=== PATIENT | female | born 1985 | race Two or more races ===

== ENCOUNTER 2022-06-22 23:23 | Emergency (ER) | payer OTHER ==
[~2022-06-22] VITALS: Ht 152.4 cm; Wt 81.6 kg
[~2022-06-22 23:23] MED LIST: ALBUTEROL2.5 MG/3 M IH
[2022-06-23] MEDS ORDERED: ORASEP SPRAY30 ML MM (04:52)
[2022-06-23] MEDS ORDERED: ZITHROMAX500 MG PO (04:52)
== END 2022-06-23 05:05 ==
LOC: ER 23:23
DX: R53.81 Other malaise (principal); J03.80 Acute tonsillitis due to other specified organisms; B96.89 Other specified bacterial agents as the cause of diseases classified elsewhere; R50.9 Fever, unspecified; R07.89 Other chest pain; Z20.822 Contact with and (suspected) exposure to COVID-19

== ENCOUNTER 2022-12-25 19:52 | Emergency (ER) | payer OTHER ==
[~2022-12-25] VITALS: Ht 152.4 cm; Wt 78.9 kg
[~2022-12-25 19:52] MED LIST changes: +ORASEP SPRAY30 ML MM; +ZITHROMAX500 MG PO
[2022-12-25 23:30] LABS: HEMATOCRIT 35.6 % (36.0-45.00); HEMOGLOBIN 11.3 g/dL (12.0-15.00); MEAN CELL VOLUME 76.2 fL (80.00-100.00); MEAN CORPUSCULAR HEMOGLOBIN 24.3 pg (27.00-32.0); MEAN CORPUSCULAR HGB CONC 31.8 g/dl (32.0-36.0); PLATELET COUNT 292 K/uL (150-450); RED BLOOD COUNT 4.67 M/uL (4.00-6.00); RED CELL DISTRIBUTION WIDTH 14.7 % (11.5-14.5)
== END 2022-12-26 01:47 | disposition home or self-care (01) ==
LOC: ER 19:52
PROVIDERS: General Practice
DX: R53.81 Other malaise (principal); J06.9 Acute upper respiratory infection, unspecified; S09.93XA Unspecified injury of face, initial encounter; S09.90XA Unspecified injury of head, initial encounter; Z20.822 Contact with and (suspected) exposure to COVID-19